=== PATIENT | male | born 1935 | race Caucasian/White ===

== ENCOUNTER 2024-02-02 13:29 | Inpatient (IN) | payer OTHER ==
[~2024-02-02] VITALS: Ht 170.2 cm; Wt 69.9 kg
[2024-02-02 13:41] VITALS: BP 163/70; PULSE 86; RESP 17; TEMP 98.3; O2SAT 99
[2024-02-02 14:20] LABS: BASOPHILS # (AUTO) 0.1 K/uL (0.00-0.22); BASOPHILS % (AUTO) 0.7 % (0.0-2.0); EOSINOPHILS % (AUTO) 0.3 % (0.0-4.0); HEMATOCRIT 24.3 % (36-52); LYMPHOCYTES # (AUTO) 0.9 K/uL (2.0-11.5); LYMPHOCYTES % (AUTO) 9.3 % (20.5-51.1); MEAN CORPUSCULAR HEMOGLOBIN 31 pg (27-31); MEAN CORPUSCULAR HGB CONC 33 g/dL (33-37); MEAN CORPUSCULAR VOLUME 93.9 fL (80-94); MONOCYTES # (AUTO) 0.8 K/uL (0.8-1.0); MONOCYTES % (AUTO) 8.6 % (1.7-9.3); NEUTROPHILS # (AUTO) 7.7 K/uL (1.8-7.7); NEUTROPHILS % (AUTO) 81.1 % (42.2-75.2); PLATELET COUNT (AUTO) 202 K/uL (140-450); RED BLOOD CELL COUNT(AUTO) 2.59 MIL/uL (4.20-6.10); RED CELL DISTRIBUTION WIDTH 17.1 % (11.6-13.7); WHITE BLOOD COUNT (AUTO) 9.5 K/uL (4.8-10.8)
[2024-02-02 14:36] LABS: ALANINE AMINOTRANSFERASE 19 U/L (12-78); ALBUMIN 3.4 g/dL (3.4-5.0); ALKALINE PHOSPHATASE 97 U/L (50-136); ANION GAP 17.5 (8-16); ASPARTATE AMINOTRANSFERASE 24 U/L (15-37); CALCIUM 8.7 mg/dL (8.5-10.1); CARBON DIOXIDE 20.9 mmol/L (21-32); CHLORIDE 109 mmol/L (98-107); GLUCOSE 121 mg/dL (74-106); LIPASE 26 U/L (16-77); POTASSIUM 4.4 mmol/L (3.5-5.1); SODIUM SERUM 143 mmol/L (136-145); TOTAL BILIRUBIN 0.4 mg/dL (0.0-1.0)
[2024-02-02 14:40] LABS: CREATININE 4.9 mg/dL (0.6-1.3); UREA NITROGEN, BLOOD 72 mg/dL (7-18)
[2024-02-02 15:36] LABS: APPEARANCE,URINE CLEAR (CLEAR); BILIRUBIN,URINE NEGATIVE (NEGATIVE); BLOOD, URINE 1+ (NEGATIVE); COLOR,URINE YELLOW (YELLOW); LEUKOCYTE ESTERASE ,URINE NEGATIVE (NEGATIVE); NITRITE, URINE NEGATIVE (NEGATIVE); PROTEIN,URINE 2+ (NEGATIVE); UGLUCOSE NEGATIVE (NEGATIVE); UROBILINOGEN,URINE 0.2 EU/dL (0.2 - 1)
[2024-02-02 15:55] LABS: BACTERIA,URINE FEW /HPF (None Seen); SQUAMOUS EPITHELIAL CELL,UR 0-3 (FEW) /LPF (0-3 (FEW)); WBC,URINE 0-5 /HPF (0-5)
[2024-02-02] MEDS: NACL 0.9% 500 ML IV SCH (16:43)
[2024-02-02] MEDS ORDERED: QUET25TA PO (17:15)
[2024-02-02] MEDS ORDERED: MAGN400S60 PO (17:15)
[2024-02-02] MEDS ORDERED: FURO-570 PO (17:15)
[2024-02-02] MEDS ORDERED: XALOS OP (17:15)
[2024-02-02] MEDS ORDERED: LOSA-272 PO ×2 (17:15)
[2024-02-02] MEDS ORDERED: QUET100T PO (17:15)
[2024-02-02] MEDS ORDERED: BISA-28 PO (17:15)
[2024-02-02] MEDS ORDERED: BRIN8DRO OP (17:15)
[2024-02-02] MEDS ORDERED: QUET50TA PO (17:15)
[2024-02-02] MEDS ORDERED: VITA1TAB44 PO (17:15)
[2024-02-02] MEDS ORDERED: AMLO10TA PO (17:15)
[2024-02-02] MEDS ORDERED: DOCU-299 PO (17:15)
[2024-02-02] MEDS ORDERED: MORPHINE SULFATE 4 MG/ML SYR IVP PRN (18:20)
[2024-02-02] MEDS ORDERED: MAG SULF 2000 MG/WATER PREMIX 50 ML IV PRN (18:20)
[2024-02-02] MEDS ORDERED: POTASSIUM CHLORIDE 10 MEQ TABER PO PRN (18:20)
[2024-02-02] MEDS ORDERED: ONDANSETRON 4 MG/2 ML VIAL IVP PRN (18:20)
[2024-02-02] MEDS ORDERED: KCL 20 MEQ IN 100 mL PREMIX 200 ML IV PRN (18:20)
[2024-02-02] MEDS ORDERED: ACETAMINOPHEN 325 MG TAB PO PRN (18:20)
[2024-02-02] MEDS: NIFEdipine 60 MG TABER PO SCH (19:00)
[2024-02-02 20:00] VITALS: BP 166/74; PULSE 78; RESP 16; TEMP 97.5
[2024-02-02 22:00] VITALS: BP 142/60; PULSE 88; RESP 16
[2024-02-02] MEDS: hydrALAZINE 20 MG/ML VIAL IVP PRN (22:11)
[2024-02-02] MEDS: NACL 0.9% 1,000 ML IV SCH (22:14)
[2024-02-03 06:26] LABS: ANION GAP 14.9 (8-16); CALCIUM 8.5 mg/dL (8.5-10.1); CARBON DIOXIDE 22.3 mmol/L (21-32); CHLORIDE 113 mmol/L (98-107); CREATININE 3.7 mg/dL (0.6-1.3); GLUCOSE 92 mg/dL (74-106); POTASSIUM 4.2 mmol/L (3.5-5.1); SODIUM SERUM 146 mmol/L (136-145)
[2024-02-03 06:53] LABS: UREA NITROGEN, BLOOD 64 mg/dL (7-18)
[2024-02-03 06:59] LABS: BASOPHILS % (AUTO) 0.6 % (0.0-2.0); EOSINOPHILS # (AUTO) 0.2 K/uL (0-0.4); EOSINOPHILS % (AUTO) 2.7 % (0.0-4.0); HEMATOCRIT 23.1 % (36-52); HEMOGLOBIN 7.7 g/dL (12.0-18.0); LYMPHOCYTES # (AUTO) 1.1 K/uL (2.0-11.5); LYMPHOCYTES % (AUTO) 16.7 % (20.5-51.1); MEAN CORPUSCULAR HEMOGLOBIN 31 pg (27-31); MEAN CORPUSCULAR HGB CONC 33 g/dL (33-37); MEAN CORPUSCULAR VOLUME 92.9 fL (80-94); MONOCYTES # (AUTO) 0.8 K/uL (0.8-1.0); MONOCYTES % (AUTO) 11.9 % (1.7-9.3); NEUTROPHILS # (AUTO) 4.7 K/uL (1.8-7.7); NEUTROPHILS % (AUTO) 68.1 % (42.2-75.2); PLATELET COUNT (AUTO) 192 K/uL (140-450); RED BLOOD CELL COUNT(AUTO) 2.49 MIL/uL (4.20-6.10); WHITE BLOOD COUNT (AUTO) 6.9 K/uL (4.8-10.8)
[2024-02-03 08:00] VITALS: BP 141/66; PULSE 83; RESP 18; TEMP 96.9; O2SAT 96
[2024-02-03] MEDS: TAMSULOSIN 0.4 MG CAP PO SCH (10:10)
[2024-02-03] MEDS: LEVOFLOXACIN 500 MG/D5W PREMIX 100 ML IV SCH (10:15)
[2024-02-03 16:00] VITALS: BP 150/62; PULSE 77; RESP 18; TEMP 98.3; O2SAT 96
[2024-02-03 20:00] VITALS: BP 136/61; PULSE 73; RESP 18; TEMP 98.7; O2SAT 98
[2024-02-03] MEDS: HYDROcodone/APAP 5/325 MG 1 TAB TAB PO PRN (20:33)
[2024-02-04 04:00] VITALS: BP 147/61; PULSE 78; RESP 18; TEMP 98.5; O2SAT 97
[2024-02-04 05:35] LABS: BASOPHILS % (AUTO) 0.6 % (0.0-2.0); EOSINOPHILS # (AUTO) 0.3 K/uL (0-0.4); EOSINOPHILS % (AUTO) 4.7 % (0.0-4.0); HEMATOCRIT 23.3 % (36-52); HEMOGLOBIN 7.7 g/dL (12.0-18.0); LYMPHOCYTES # (AUTO) 1.5 K/uL (2.0-11.5); MEAN CORPUSCULAR HEMOGLOBIN 31 pg (27-31); MEAN CORPUSCULAR HGB CONC 33 g/dL (33-37); MEAN CORPUSCULAR VOLUME 93.3 fL (80-94); MONOCYTES # (AUTO) 0.8 K/uL (0.8-1.0); MONOCYTES % (AUTO) 10.8 % (1.7-9.3); NEUTROPHILS # (AUTO) 4.5 K/uL (1.8-7.7); NEUTROPHILS % (AUTO) 62.9 % (42.2-75.2); PLATELET COUNT (AUTO) 193 K/uL (140-450); RED CELL DISTRIBUTION WIDTH 16.5 % (11.6-13.7); WHITE BLOOD COUNT (AUTO) 7.2 K/uL (4.8-10.8)
[2024-02-04 05:51] LABS: ANION GAP 13.5 (8-16); CALCIUM 7.9 mg/dL (8.5-10.1); CARBON DIOXIDE 22.5 mmol/L (21-32); CHLORIDE 112 mmol/L (98-107); CREATININE 2.9 mg/dL (0.6-1.3); GLUCOSE 103 mg/dL (74-106); SODIUM SERUM 144 mmol/L (136-145); UREA NITROGEN, BLOOD 60 mg/dL (7-18)
[2024-02-04 08:00] VITALS: TEMP 99
[2024-02-04] MEDS: LEVOFLOXACIN 250 MG/D5 PREMIX 50 ML IV SCH (10:01)
[2024-02-04 16:00] VITALS: BP 146/68; PULSE 68; RESP 18; TEMP 98.9; O2SAT 93
[2024-02-04 20:00] VITALS: PULSE 70; RESP 16; TEMP 99.8
[2024-02-05] VITALS: BP 136/78; PULSE 80; RESP 18; TEMP 97.7; O2SAT 95
[2024-02-05 04:00] VITALS: BP 117/66; PULSE 73; RESP 17; TEMP 99; O2SAT 96
[2024-02-05 05:36] LABS: BASOPHILS # (AUTO) 0.1 K/uL (0.00-0.22); BASOPHILS % (AUTO) 0.9 % (0.0-2.0); EOSINOPHILS # (AUTO) 0.2 K/uL (0-0.4); EOSINOPHILS % (AUTO) 2.6 % (0.0-4.0); HEMATOCRIT 23.3 % (36-52); LYMPHOCYTES % (AUTO) 13.4 % (20.5-51.1); MEAN CORPUSCULAR HEMOGLOBIN 32 pg (27-31); MEAN CORPUSCULAR HGB CONC 34 g/dL (33-37); MEAN CORPUSCULAR VOLUME 92.2 fL (80-94); MONOCYTES # (AUTO) 0.8 K/uL (0.8-1.0); MONOCYTES % (AUTO) 10.3 % (1.7-9.3); NEUTROPHILS # (AUTO) 5.4 K/uL (1.8-7.7); NEUTROPHILS % (AUTO) 72.8 % (42.2-75.2); PLATELET COUNT (AUTO) 191 K/uL (140-450); RED BLOOD CELL COUNT(AUTO) 2.53 MIL/uL (4.20-6.10); RED CELL DISTRIBUTION WIDTH 16.6 % (11.6-13.7); WHITE BLOOD COUNT (AUTO) 7.5 K/uL (4.8-10.8)
[2024-02-05 06:58] LABS: ANION GAP 16.4 (8-16); CALCIUM 7.9 mg/dL (8.5-10.1); CARBON DIOXIDE 20.8 mmol/L (21-32); CHLORIDE 112 mmol/L (98-107); CREATININE 2.5 mg/dL (0.6-1.3); GLUCOSE 102 mg/dL (74-106); POTASSIUM 4.2 mmol/L (3.5-5.1); SODIUM SERUM 145 mmol/L (136-145); UREA NITROGEN, BLOOD 51 mg/dL (7-18)
[2024-02-05 08:00] VITALS: BP 182/98; PULSE 69; PULSE 73; RESP 16; RESP 18; TEMP 97.6; O2SAT 96
[2024-02-05] MEDS ORDERED: LORazepam 1 MG TAB PO PRN (08:40)
[2024-02-05] MEDS: NACL 0.45% 1,000 ML IV SCH (09:55)
[2024-02-05] MEDS: CLONIDINE HYDROCHLORIDE 0.1 MG TAB PO SCH (14:56)
[2024-02-05 16:00] VITALS: BP 143/82; PULSE 90; RESP 18; TEMP 98.3; O2SAT 99
[2024-02-05 20:00] VITALS: BP 115/70; PULSE 70; RESP 20; RESP 22; TEMP 97.5; TEMP 98.1; O2SAT 95
[2024-02-06 04:00] VITALS: BP 143/77; PULSE 53; RESP 22; TEMP 97.4; O2SAT 96
[2024-02-06 05:52] LABS: BASOPHILS % (AUTO) 0.5 % (0.0-2.0); EOSINOPHILS # (AUTO) 0.2 K/uL (0-0.4); HEMATOCRIT 21.6 % (36-52); HEMOGLOBIN 7.3 g/dL (12.0-18.0); LYMPHOCYTES # (AUTO) 1.2 K/uL (2.0-11.5); LYMPHOCYTES % (AUTO) 20.2 % (20.5-51.1); MEAN CORPUSCULAR HEMOGLOBIN 31 pg (27-31); MEAN CORPUSCULAR HGB CONC 34 g/dL (33-37); MEAN CORPUSCULAR VOLUME 92.1 fL (80-94); MONOCYTES # (AUTO) 0.7 K/uL (0.8-1.0); MONOCYTES % (AUTO) 11.9 % (1.7-9.3); NEUTROPHILS # (AUTO) 3.8 K/uL (1.8-7.7); NEUTROPHILS % (AUTO) 64.4 % (42.2-75.2); PLATELET COUNT (AUTO) 173 K/uL (140-450); RED BLOOD CELL COUNT(AUTO) 2.35 MIL/uL (4.20-6.10); RED CELL DISTRIBUTION WIDTH 16.5 % (11.6-13.7); WHITE BLOOD COUNT (AUTO) 5.9 K/uL (4.8-10.8)
[2024-02-06 06:16] LABS: ANION GAP 11.3 (8-16); CALCIUM 7.7 mg/dL (8.5-10.1); CARBON DIOXIDE 21.9 mmol/L (21-32); CHLORIDE 110 mmol/L (98-107); CREATININE 1.8 mg/dL (0.6-1.3); GLUCOSE 100 mg/dL (74-106); POTASSIUM 4.2 mmol/L (3.5-5.1); SODIUM SERUM 139 mmol/L (136-145); UREA NITROGEN, BLOOD 42 mg/dL (7-18)
[2024-02-06 08:00] VITALS: PULSE 70; RESP 18; TEMP 98; O2SAT 99
[2024-02-06 12:00] VITALS: BP 138/79; PULSE 74; RESP 18; TEMP 98; O2SAT 99
[2024-02-06] MEDS ORDERED: CEFD300C3 PO (14:48)
[2024-02-06] MEDS ORDERED: FURO-572 PO (14:48)
[2024-02-06 15:08] VITALS: BP 138/79; PULSE 74; RESP 18; TEMP 98
== END 2024-02-06 17:42 | DRG 682 ==
LOC: MED 13:29 → MTU 16:06
PROVIDERS: ADMIT Student in an Organized Health Care Education/Training Program; ATTEND Student in an Organized Health Care Education/Training Program
DX: N17.9 Acute kidney failure, unspecified (principal); G93.41 Metabolic encephalopathy; E86.0 Dehydration; N13.6 Pyonephrosis; I12.9 Hypertensive chronic kidney disease with stage 1 through stage 4 chronic kidney disease, or unspecified chronic kidney disease; N18.9 Chronic kidney disease, unspecified; D50.9 Iron deficiency anemia, unspecified; F03.90 Unspecified dementia, unspecified severity, without behavioral disturbance, psychotic disturbance, mood disturbance, and anxiety; E86.1 Hypovolemia; Z79.899 Other long term (current) drug therapy
CPT/HCPCS: 36415; 70450; 76770; 80048; 80053; 81001; 82140; 83690; 85025; 87081; 92526; 97116; 97163-GP; 99285; J0360; J0696; J1644; J1956; J7060; Q0092